=== PATIENT | male | born 1980 | race Caucasian/White ===

== ENCOUNTER → 2017-08-15 | Outpatient (CLI) | payer BC ==
--- NOTE | 2017-08-15 13:18 | US ---
EXAMINATION TYPE: US scrotum with doppler. DATE OF EXAM: 08/15/2017 COMPARISON: NONE CLINICAL HISTORY: 36-year-old male N50.811 rt testicular pain. TECHNIQUE: Grayscale and color Doppler Duplex imaging performed of the scrotum. Findings: EXAM MEASUREMENTS: TESTICLES: Right Testicle: 4.9 x 2.2 x 2.3 cm Left Testicle: 4.5 x 2.0 x 2.9 cm The testicles show normal homogeneous echotexture without hyperemia. Relatively symmetrical size. Sat isfactory arterial and venous flow on both sides. No evidence for testicular torsion. EPIDIDYMIS HEAD: Right Epididymis: 1.1 x 0.9 x 1.4 cm Left Epididymis: 1.0 x 0.9 x 1.5 cm No epididymal hyperemia. Presence of hydroceles: no Presence of varicoceles: no IMPRESSION: Normal testicular ultrasound.
== END ==
LOC: RADUSMAIN 12:19
PROVIDERS: ATTEND Family Medicine
DX: N50.811 Right testicular pain (principal)
CPT/HCPCS: 76870; 93975

== ENCOUNTER → 2017-09-11 | Outpatient (CLI) | payer BC ==
--- NOTE | 2017-09-11 22:18 | CT ---
EXAMINATION TYPE: CT abdomen pelvis w con DATE OF EXAM: 09/11/2017 COMPARISON: NONE HISTORY: Right upper quadrant to right groin pain. CT DLP: 1168.00 mGycm, Automated Exposure Control for Dose Reduction was Utilized. CONTRAST: CT scan of the abdomen and pelvis is performed with oral and with IV Contrast, patient injected with 100 mL of Omnipaque 300. FINDINGS: LUNG BASES: No significant abnormality is appreciated. LIVER/GB: Contracted gallbladder is noted. This is likely product of recent meal ingestion as debris filled stomach is noted. PANCREAS: No significant abnormality is seen. SPLEEN: No significant abnormality is seen. ADRENALS: No significant abnormality is seen. KIDNEYS: No significant abnormality is seen. BOWEL: That oral contrast does not reach level of the terminal ileum making evaluation distal bowel s uboptimal. There is contrast and debris prominent stomach. Contrast is seen in the slightly prominent duodenal sweep. There is no suspicious small or large bowel dilatation. There is mild wall thickenin g in the sigmoid and left colon. Appendix is not well seen with certainty but there is no inflammator y change at base of cecum identified. PROSTATE/SEMINAL VESICLES: No gross abnormality seen. LYMPH NODES: No greater than 1cm abdominal or pelvic lymph nodes are appreciated. OSSEOUS STRUCTURES: No significant abnormality is seen. OTHER: No significant additional abnormality is seen. IMPRESSION: Possible mild distal colitis, correlate clinically. Finding also could be product of poor distention.
== END | disposition home or self-care (01) ==
LOC: RADCTMAIN 17:43
PROVIDERS: ATTEND Family Medicine
DX: R10.11 Right upper quadrant pain (principal)
CPT/HCPCS: 74177; Q9967

== ENCOUNTER 2021-11-10 08:05 | Day surgery (SDC) | payer BC ==
[2021-11-08 11:38] VITALS: BMI 23.7
[~2021-11-10 08:05] MED LIST: LACTATED RINGERS 1,000 ML IV SCH; LIDOCAINE 1% (10MG/ML) FOR IV START INTRADERMA PRN
[2021-11-10 08:30] VITALS: RESP 16; TEMP 97.1
[2021-11-10] MEDS ORDERED: PROPOFOL 10 MG/ML 20 ML VIAL IV ONE (08:58)
[2021-11-10] MEDS ORDERED: LIDOCAINE 1% INJ 10MG/ML (20 ML MDV) ONE (08:58)
--- NOTE | 2021-11-10 09:14 | P.PCN ---
Date of Procedure: 11/10/21 Procedure(s) Performed: BRIEF HISTORY: Patient is a 41-year-old pleasant white male scheduled for an elective colonoscopy as a part of screening for colon cancer and family history of colon cancer. PROCEDURE PERFORMED: Colonoscopy. PREOPERATIVE DIAGNOSIS: Screening for colon cancer/family history of colon cancer. IV sedation per Anesthesia. PROCEDURE: After informed consent was obtained, the patient, was brought into the endoscopy unit. IV sedation was administered by Anesthesia under continuous monitoring. Digital rectal examination was normal. Initially the Olympus CF-160 flexible video colonoscope was then inserted in the rectum, gradually advanced into the cecum without any difficulty. Careful examination was performed as the scope was gradually being withdrawn. Ileocecal valve and the appendiceal orifice were visualized and appeared normal. Prep was excellent. Mucosa of the cecum, ascending colon, transverse colon, descending colon, sigmoid colon, and rectum appeared normal. Retroflexion was performed in the rectum and no lesions were seen. The patient tolerated the procedure well. IMPRESSION: Normal-appearing colon from rectum to cecum with no evidence of colorectal neoplasia. RECOMMENDATIONS: Findings of this examination were discussed with the patient as well as his family. He was advised to have a repeat screening colonoscopy in 10 years..
[2021-11-10 09:36] VITALS: BP 130/73; PULSE 58
== END 2021-11-10 10:12 | disposition home or self-care (01) ==
LOC: ORWHC2ENDO 08:05
PROVIDERS: ATTEND Internal Medicine Gastroenterology
DX: Z12.11 Encounter for screening for malignant neoplasm of colon (principal); Z83.71 Family history of colonic polyps; Z80.0 Family history of malignant neoplasm of digestive organs
CPT/HCPCS: 45378; J2001; J2704

== ENCOUNTER → 2024-11-20 | Outpatient (CLI) | payer BC ==
--- NOTE | 2024-11-20 11:22 | US ---
EXAMINATION TYPE: US bladder DATE OF EXAM: 11/20/2024 COMPARISON: CT abdomen and pelvis 2017 CLINICAL INDICATION: Male, 44 years old with history of R39.15 URGENCY OF URINATION; Pre and post voi d bladder per order. TECHNIQUE: Grayscale and color doppler imaging of the bilateral kidneys and urinary bladder. FINDINGS: EXAM MEASUREMENTS: Prevoid Volume: 625.8 Post Void Residual Volume: 28.9 mL Color Doppler performed to assess ureteral jets. Bilateral Jets seen- Yes Normal Post Void Residual (less than 50ml): Yes IMPRESSION: Unremarkable study. No abnormal postvoid residual. [facility], , 11/20/2024 11:19 AM
== END | disposition home or self-care (01) ==
LOC: RADUSWWP 10:24
PROVIDERS: ATTEND Family Medicine
DX: R39.15 Urgency of urination (principal)
CPT/HCPCS: 76857